=== PATIENT | female | born 1980 ===

== ENCOUNTER 2019-05-18 17:47 | Inpatient (IN) | payer OTHER ==
[~2019-05-18] VITALS: Ht 152.4 cm; Wt 72.6 kg
== END 2019-05-20 09:52 | disposition home or self-care (01) | DRG 807 ==
LOC: EDSTATUS 05-19 06:42 → OB/GYN 05-19 06:44 → SURH 05-19 06:58 → LDR 05-19 06:58 → CIR.AMB 05-19 15:27 → OB/GYN 05-19 19:54 → SURH 05-19 22:06
PROVIDERS: ADMIT Obstetrics & Gynecology
PROC: 10D17Z9 Manual Extraction of Products of Conception, Retained, Via Natural or Artificial Opening (ICD-10-PCS; 2019-05-19)
PROC: 3E033VJ Introduction of Other Hormone into Peripheral Vein, Percutaneous Approach (ICD-10-PCS; 2019-05-19)
PROC: 3E0P7VZ Introduction of Hormone into Female Reproductive, Via Natural or Artificial Opening (ICD-10-PCS; 2019-05-19)
PROC: 10E0XZZ Delivery of Products of Conception, External Approach (ICD-10-PCS; principal; 2019-05-19 18:15)
DX: O35.1XX0 Maternal care for (suspected) chromosomal abnormality in fetus, not applicable or unspecified (principal); Z37.1 Single stillbirth; O73.0 Retained placenta without hemorrhage; Z3A.15 15 weeks gestation of pregnancy